=== PATIENT | male | born 1960 | race Caucasian/White ===

== ENCOUNTER 2019-05-16 17:53 | Emergency (ER) | payer SELFPAY ==
--- NOTE | 2019-05-16 17:59 | ED Physician Documentation ---
Hand Injury - HISTORIAN Historian: patient - HPI Stated Complaint: finger pain /laceration post injury Chief Complaint: Hand Injury Onset: just prior to arrival Where: work Severity: mild Duration: persistent since Context: crush Location of Injury: R hand Modifying Factors: pain on movement Further Comments: yes (he states he was carrying bricks at work and he smashed his middle finger with two 20 lb bricks. He continued his work day. He has no loss of sensation or ROM. He did not take any OTC meds he rates pain 11/20) - ROS CONST: no problems - PAST HX Past History: none Immunizations: tetanus - SOCIAL HX Smoking History: cigarettes Alcohol Use: none Drug Use: none - FAMILY HX Family History: none - REVIEWED ASSESSMENTS Nursing Assessment Reviewed: Yes Vitals Reviewed: Yes <Donita Villagomez - Last Filed: 05/16/19 18:52> - VITAL SIGNS Vital Signs: Vital Signs Temp Pulse Resp BP Pulse Ox 106 H 16 164/110 99 05/16/19 17:55 05/16/19 17:55 05/16/19 17:55 05/16/19 17:55 <Maria Toussaint - Last Filed: 05/16/19 20:20> - PAST HX Allergies/Adverse Reactions: Allergies Allergy/AdvReac Type Severity Reaction Status Date / Time cephalexin [From Keflex] Allergy Verified 05/16/19 18:10 Home Medications: Ambulatory Orders Medication Instructions Recorded NK 05/16/19 Procedures Wound Location: other (right 3rd digit (pad of finger)) Wound's Depth, Shape: flap Wound Explored: clean Irrigated w/ Saline (ccs): 100 Betadine Prep?: No Wound Repaired With: steri-strips, Dermabond Sterile Dressing Applied?: Yes (telfa) Splint Applied?: Yes (finger splint) <Maria Toussaint - Last Filed: 05/16/19 20:20> Progress - Progress Progress: 1852: care and report given to LCam Ventura [employer] DG <Donita Villagomez - Last Filed: 05/16/19 18:52> - Progress Progress: 19:25 Patient does not want laceration suture (its not in a bend of finger)- will glue and steri-strip and apply dressing with finger splint- patient very thankful (hx of IV drug use and wants to avoid needles. <Maria Toussaint - Last Filed: 05/16/19 20:20> ED Results Lab/Radiology - Radiology Radiology Impressions: Right hand, 3 views History: Injury, pain, distention third finger Findings: There is no acute fracture, dislocation or abnormal bone destruction. Degenerative change is noted at the third metacarpal head and 3rd proximal phalangeal base. Impression: No acute abnormality. Electronically signed on May 16, 2019 7:09:16 PM LIGHTING SPECIALIST by: Shawn Mars - Orders Orders: ED Orders Category Date Time Status HAND XRAY [HAND 3 VIEWS OR MORE] [RAD] Stat Exams 05/16/19 Completed Diph,Pertuss(Acell),Tet Vac/Pf [Adacel] Med 05/16/19 18:09 Discontinued 0.5 ml IM .ONCE ONE <Maria Toussaint - Last Filed: 05/16/19 20:20> Hand Injury Physical Exam - Exam General Appearance: no acute distress, alert Hand: nml inspection, non-tender, tenderness (right hand middle finger with laceration and swelling 3 cm half nieto shape posterior of finger . Cap refill + and FROM with sensation ), soft tissue tenderness, deformity Wrist: normal inspection, non-tender, no evidence of injury Neuro: sensation nml, motor nml Vascular: no vascular compromise Tendons: tendon function nml Forearm/Elbow/Arm: uninjured above wrist Skin: warm/dry, normal color Head/ENT: nml inspection, pharynx nml Neck/Back: nml inspection, non-tender Resp/CVS: chest non-tender, breath sounds nml, heart sounds nml, no resp. distress, lungs clear, reg. rate & rhythm Abdomen: non-tender <Donita Villagomez - Last Filed: 05/16/19 18:52> Discharge <Donita Villagomez - Last Filed: 05/16/19 18:52> Decision to Admit: NO Decision Time: 19:32 <Maria Toussaint - Last Filed: 05/16/19 20:20> Clincal Impression: Injury of finger of right hand, Right 3rd digit injury with laceration Referrals: Primary Doctor,No [Primary Care Provider] - 2 Days Additional Instructions: Leave finger splint on until laceration heals Follow up with PCP as needed Condition: Good Disposition: 01 HOME, SELF-CARE
[2019-05-16] MEDS ORDERED: DIPH,PERTUSS(ACELL),TET VAC/PF 0.5 ML DISP.SYRIN IM ONE (18:09)
[2019-05-16 18:10] VITALS: BP 164/110
--- NOTE | 2019-05-16 19:13 | Diagnostic Imaging Report ---
PATIENT MR#: [id number] PATIENT PATIENT NAME: YE ALBERT DATE OF : 1960 REFERRING PHYSICIAN: Donita Villagomez EXAM DATE: 05/16/2019 ACCESSION NUMBER: [id number] EXAM DESCRIPTION: HAND 3 VIEWS OR MORE Right hand, 3 views History: Injury, pain, distention third finger Findings: There is no acute fracture, dislocation or abnormal bone destruction. Degenerative change i s noted at the third metacarpal head and 3rd proximal phalangeal base. Impression: No acute abnormality. Read by: Dr. Shawn Mars Transcribed by: Transcribed Date: Electronically signed by: Dr. Shawn Mars Date signed: 05/16/2019 7:13:00 PM
== END 2019-05-16 19:32 | disposition home or self-care (01) ==
LOC: ED 17:53
DX: S61.212A Laceration without foreign body of right middle finger without damage to nail, initial encounter (principal); W23.1XXA Caught, crushed, jammed, or pinched between stationary objects, initial encounter; Y99.0 Civilian activity done for income or pay
CPT/HCPCS: 12002; 73130; 90471; 90715; 99283; 99284; J7030